=== PATIENT | male | born 1990 | race Caucasian/White ===

== ENCOUNTER 2017-08-16 06:31 | Emergency (ER) | payer OTHER ==
[~2017-08-16] VITALS: Ht 170.2 cm; Wt 48.5 kg
[2017-08-16 06:37] VITALS: BP 118/71
[2017-08-16] MEDS ORDERED: methylPREDNISolone SOD SUCC 125 MG/2 ML VL IV ONE (07:15)
[2017-08-16] MEDS ORDERED: SODIUM CHLORIDE 0.9% 1,000 ML IV ONE (07:15)
[2017-08-16] MEDS ORDERED: KETOROLAC TROMETH 30 MG/ML 1ML VIAL IV ONE (07:15)
[2017-08-16] MEDS ORDERED: cefTRIAXone 1GM/10ml IVPUSH 10 ML IV ONE (07:15)
== END 2017-08-16 08:21 | disposition home or self-care (01) ==
LOC: ER 06:31
DX: K05.10 Chronic gingivitis, plaque induced (principal); K12.1 Other forms of stomatitis
CPT/HCPCS: 96361; 96374; 96375; 99284; J1885; J2930